=== PATIENT | female | born 1990 | race Caucasian/White ===

== ENCOUNTER 2021-05-30 23:16 | Emergency (ER) | payer OTHER, SELFPAY ==
[2021-05-30 23:27] VITALS: BP 119/70; PULSE 109; RESP 19; TEMP 36.9; O2SAT 97
[2021-05-31 00:06] LABS: Add Manual Diff / Slide Review NO; Basophils Absolute Auto 100 /uL (0-100); Basophils Percent Auto 0.9 % (0-2); Eosinophils Absolute Auto 0 /uL (0-450); Eosinophils Percent Auto 0.4 % (2-4); Hematocrit 33.3 % (36-46); Hemoglobin 11.5 g/dL (12.0-16.0); Lymphocytes Absolute Auto 1300 /uL (1100-4500); Lymphocytes Percent Auto 14.7 % (25-40); Mean Corpuscular HGB Conc 34.7 % (30-36); Mean Corpuscular Hemoglobin 31.8 PG (26-34); Mean Corpuscular Volume 91.6 fL (80-100); Monocytes Absolute Auto 500 /uL (0-900); Monocytes Percent Auto 5.5 % (3-14); Neutrophils Absolute Auto 7100 /uL (1500-7000); Neutrophils Percent Auto 78.5 % (50-75); Platelet Count 328 X10^3/uL (150-400); Red Blood Cell Count 3.63 X10^6/uL (4.0-5.2); Red Cell Distribution Width 13.1 % (11.6-14.8)
[2021-05-31] MEDS: SODIUM CHLORIDE 0.9% 1,000 ML 1000 ML IV (00:11)
[2021-05-31] MEDS: ONDANSETRON 4 MG/2 ML INJ IV (00:11)
[2021-05-31 00:17] LABS: Alanine Aminotransferase 16 IU/L (<35); Albumin 4.1 g/dL (3.5-5.0); Albumin Globulin Ratio 1.3 (1.0-2.8); Alkaline Phosphatase 72 U/L (38-126); Aspartate Aminotransferase 22 IU/L (14-36); BUN Creatinine Ratio 19.7 (6-22); Bilirubin Total 0.8 mg/dL (0.2-1.3); Blood Urea Nitrogen 27 mg/dL (7-17); Calcium 9.4 mg/dL (8.4-10.2); Carbon Dioxide 22 mmol/L (22-32); Chloride 107 mmol/L (98-107); Estimated Glomerular Filt Rate 44.7 mL/min (>60); Globulin 3.2 g/dL (1.7-4.1); Glucose 260 mg/dL (70-100); HEMOLYSIS < 15 (0-50); Lipase 48 U/L (23-300); Potassium 4.4 mmol/L (3.4-5.1); Sodium 138 mmol/L (137-145); Total Protein 7.3 g/dL (6.3-8.2)
--- NOTE | 2021-05-31 00:39 | ED.GENADULT ---
HPI - General Adult General Chief complaint: Abdominal Pain Stated complaint: vomiting/abdomin/low back pain x2 days Time Seen by Provider: 05/31/21 00:30 Source: patient Mode of arrival: Ambulatory Limitations: no limitations History of Present Illness HPI narrative: Patient is a 31-year-old female. Is a type 1 diabetic. Has a ?autonomic dysfunction that causes her to have issues with nausea and vomiting and abdominal pain and pain all over. She takes a cocktail medicines that she states provided by her primary doctor which includes gabapentin and Ativan and Phenergan. She has run out of her Ativan. Her last dose was this morning. She has had a couple days of vomiting and abdominal discomfort and generally not feeling very well. No fevers. Related Data Previous Rx's Medication Instructions Recorded lorazepam 1 mg tablet (Ativan) 1 mg PO TID PRN #3 tab 05/31/21 Allergies Allergy/AdvReac Type Severity Reaction Status Date / Time haloperidol [From Haldol] Allergy Agitated Verified 05/30/21 23:27 Review of Systems Constitutional Constitutional: Denies fever(s) Cardiovascular Cardiovascular: Denies chest pain and Denies dyspnea Respiratory Respiratory: Denies dyspnea Gastrointestinal Gastrointestinal: Reports system reviewed and no additional complaints, except as documented, Denies change in bowel habits, Reports nausea and Reports vomiting Genitourinary Genitourinary: Reports system reviewed and no additional complaints, except as documented Musculoskeletal Musculoskeletal: Reports system reviewed and no additional complaints, except as documented and Reports as per HPI Integumentary/Breasts Skin/Breast: Reports system reviewed and no additional complaints, except as documented Neurologic Neurologic: Reports system reviewed and no additional complaints, except as documented and Reports as per HPI Psychiatric Psychiatric: Reports system reviewed and no additional complaints, except as documented, Reports as per HPI and Reports anxiety Hematologic/Lymphatic On Anticoagulants: No Patient History Medical History Diabetes Social History Smoking Status: Never smoker Smoking Status: Never smoker alcohol intake frequency: holidays/special occasions only Substance Use Type: does not use Exam Initial Vital Signs Initial Vital Signs: Vital Signs Temperature 98.5 F 05/30/21 23:27 Pulse Rate 109 H 05/30/21 23:27 Respiratory Rate 19 05/30/21 23:27 Blood Pressure 119/70 05/30/21 23:27 Pulse Oximetry 97 05/30/21 23:27 Const General: cooperative and comfortable Limitations: mental status not altered HENMT Head: normal to inspection and normocephalic Resp Effort & Inspection: normal respiratory effort Cardio Rate: tachycardic Rhythm: regular rhythm GI Inspection: normal to inspection and non-distended Skin General: no rashes or lesions noted Neuro General: patient alert, patient awake, patient oriented x3 and moves all extremities Extrem General: normal to inspection Psych Appearance: grossly normal and well kempt Affect: anxious affect Course Orders Ordered: ED Orders 05/30/21 23:45 Complete Blood Count AUTO DIFF Stat Comprehensive Metabolic Panel Stat Lipase Stat Discontinued Medications Hydrocodone Bitart/Acetaminophen (Hydrocodone/Acet 5/325 Tablet) 1 tab PO NOW ONE Stop: 05/31/21 01:03 Last Admin: 05/31/21 01:17 Dose: 1 tab Documented by: ENE Gabapentin (Gabapentin 100 Mg Capsule) 400 mg PO NOW ONE Stop: 05/31/21 01:04 Last Admin: 05/31/21 01:34 Dose: 400 mg Documented by: ENE Sodium Chloride (Normal Saline 0.9%) 1,000 mls @ 1,000 mls/hr IV BOLUS ONE Stop: 05/31/21 00:48 Last Infusion: 05/31/21 01:34 Dose: 0 mls/hr Documented by: Admin: 05/31/21 00:11 Dose: 1,000 mls/hr Documented by: ENE Lorazepam (Lorazepam 2 Mg/Ml Inj) 1 mg IV NOW ONE Stop: 05/31/21 00:41 Last Admin: 05/31/21 00:56 Dose: 1 mg Documented by: ENE Ondansetron HCl (Ondansetron 4 Mg/2 Ml Inj) 4 mg IV NOW ONE Stop: 05/30/21 23:50 Last Admin: 05/31/21 00:11 Dose: 4 mg Documented by: ENE Vital Signs Vital signs: Vital Signs - 8 hr 05/30/21 23:27 05/31/21 02:22 Temperature 98.5 F Pulse Rate 109 H 100 H Respiratory Rate 19 16 Blood Pressure 119/70 95/53 L Pulse Oximetry 97 100 Medical Decision Making Lab Data Lab results reviewed: Yes I reviewed the patient's lab results. Result diagrams: 05/30/21 23:45 05/30/21 23:45 Labs: Lab Results 05/30/21 05/30/21 Range/Units 23:45 23:45 WBC 9.0 (4.5-11.0) X10^3/uL RBC 3.63 L (4.0-5.2) X10^6/uL Hgb 11.5 L (12.0-16.0) g/dL Hct 33.3 L (36-46) % MCV 91.6 (80-100) fL MCH 31.8 (26-34) PG MCHC 34.7 (30-36) % RDW 13.1 (11.6-14.8) % Plt Count 328 (150-400) X10^3/uL Neut % (Auto) 78.5 H (50-75) % Lymph % (Auto) 14.7 L (25-40) % [place] % (Auto) 5.5 (3-14) % Eos % (Auto) 0.4 L (2-4) % Baso % (Auto) 0.9 (0-2) % Neut # (Auto) 7100 H (4109-3123) /uL Lymph # (Auto) 1300 (7532-7665) /uL [place] # (Auto) 500 (0-900) /uL Eos # (Auto) 0 (0-450) /uL Baso # (Auto) 100 (0-100) /uL Sodium 138 (137-145) mmol/L Potassium 4.4 (3.4-5.1) mmol/L Chloride 107 (98-107) mmol/L Carbon Dioxide 22 (22-32) mmol/L BUN 27 H (7-17) mg/dL Creatinine 1.37 H (0.52-1.04) mg/dL Estimated GFR 44.7 L (>60) mL/min BUN/Creatinine Ratio 19.7 (6-22) Glucose 260 H (70-100) mg/dL Calcium 9.4 (8.4-10.2) mg/dL Total Bilirubin 0.8 (0.2-1.3) mg/dL AST 22 (14-36) IU/L ALT 16 (<35) IU/L Alkaline Phosphatase 72 (38-126) U/L Total Protein 7.3 (6.3-8.2) g/dL Albumin 4.1 (3.5-5.0) g/dL Globulin 3.2 (1.7-4.1) g/dL Albumin/Globulin Ratio 1.3 (1.0-2.8) Lipase 48 (23-300) U/L Point of Care Testing Glucose POC 294 Point of care testing: Point of Care Testing Glucose POC 294 MDM Narrative Medical decision making narrative: Patient is hyperglycemic but she is see to 22 so have low suspicion for DKA. She potentially could be going through benzodiazepine withdrawal since she does take Ativan 3 times a day and has taken it since this morning. She is given Ativan here in the emergency department. This did seem to improve her symptoms. Has not vomited since arrival here. Rest of her labs unremarkable. I do feel we can hold on further workup for now. Patient was instructed that she needs to contact her primary doctor for a follow-up. She was given return precautions. She expressed understanding agreement. Discharge Plan Departure Patient Disposition: Home Clinical Impression: Autonomic dysfunction, Anxiety Activity Restrictions/Additional Instructions: Continue to take all of your medications as directed. Follow-up with your primary doctor. Return to the emergency department for any new symptoms. Prescriptions: New lorazepam [Ativan] 1 mg tablet 1 mg PO TID PRN (Reason: anxiety) Qty: 3 0RF
[2021-05-31] MEDS: LORazepam 2 MG/ML INJ 1 MG IV (00:56)
[2021-05-31] MEDS: HYDROCODONE/ACET 5/325 TABLET 1 TAB PO (01:17)
[2021-05-31] MEDS: GABAPENTIN 100 MG CAPSULE 400 MG PO (01:34)
[2021-05-31 02:22] VITALS: BP 95/53; PULSE 100; RESP 16; O2SAT 100
== END 2021-05-31 02:27 | disposition home or self-care (01) ==
PROVIDERS: Emergency Provider Emergency Medicine
DX: F45.8 Other somatoform disorders (principal); F41.9 Anxiety disorder, unspecified; R11.2 Nausea with vomiting, unspecified
CPT/HCPCS: 36415; 80053; 82962; 83690; 85025; 96361; 96374; 96375; 99284; J2060; J2405